=== PATIENT | female | born 1970 | race Caucasian/White ===

== ENCOUNTER → 2017-06-02 | Outpatient (CLI) | payer OTHER ==
[~2017-06-02] VITALS: Ht 162.6 cm; Wt 112.4 kg
[~2017-06-02] MED LIST: ELAVIL10 MG PO; ENDOCET 5-3251 EACH PO; FLINTSTONES CO1 EAC1 PO; IBUPROFEN800 MG PO; LEXAPRO10 MG PO; MELOXICAM15 MG PO; NOHOMEMEDS; PHENTERMINE H37.5 MG PO; ROBAXIN750 MG PO; STERAPRED DS 1010 MG PO; VICODIN 5-5001 EACH PO
== END | disposition home or self-care (01) ==
LOC: AMB 05-12 07:00
DX: Z01.818 Encounter for other preprocedural examination (principal); K29.60 Other gastritis without bleeding; K44.9 Diaphragmatic hernia without obstruction or gangrene; K28.9 Gastrojejunal ulcer, unspecified as acute or chronic, without hemorrhage or perforation; E66.01 Morbid (severe) obesity due to excess calories; Z68.41 Body mass index [BMI] 40.0-44.9, adult; I10 Essential (primary) hypertension; F32.9 Major depressive disorder, single episode, unspecified; F41.9 Anxiety disorder, unspecified; M19.90 Unspecified osteoarthritis, unspecified site; Z80.0 Family history of malignant neoplasm of digestive organs; Z82.49 Family history of ischemic heart disease and other diseases of the circulatory system; Z83.49 Family history of other endocrine, nutritional and metabolic diseases
CPT/HCPCS: 88305; 88342 TC; J2250